=== PATIENT | female | born 1950 | race Hispanic/Latino ===

== ENCOUNTER 2018-07-24 13:28 | Outpatient (RCR) | payer MEDICARE, OTHER ==
[~2018-07-24 13:28] MED LIST: ATORVASTATIN CA20 MG PO; FUROSEMIDE40 MG PO; GLIMEPIRIDE2 MG PO; METFORMIN HCL850 MG PO; METOCLOPRAMIDE10 MG PO; METOPROLOL TAR100 MG PO; NORCO 10-325 T1 EACH PO; OMEPRAZOLE40 MG PO; TIZANIDINE HCL4 MG PO; VICTOZA 2-0.6 MG/0.1 INJ; VITAMIN D1000 UNIT PO; VITAMIN E400 UNI2 PO; ZOFRAN ODT4 MG PO
== END 2018-08-03 ==
LOC: PT 13:28
PROVIDERS: ATTEND Specialist
DX: M70.62 Trochanteric bursitis, left hip (principal); M25.552 Pain in left hip; M62.81 Muscle weakness (generalized)
CPT/HCPCS: 97010; 97110; 97162; G8978; G8979

== ENCOUNTER 2021-12-17 20:05 | Inpatient (IN) | payer MEDICARE ==
[~2021-12-17] VITALS: Ht 154.9 cm; Wt 76.7 kg
[2021-12-17] MEDS ORDERED: ACETAMINOPHEN 325 MG TAB PO STA (20:21)
[2021-12-17] MEDS ORDERED: ASPIRIN 81 MG CHEW TAB PO ONE (20:30)
[2021-12-17 20:35] LABS: BASOPHILS % 0.5 % (0.0-1.0); EOSINOPHILS % 0.3 % (0.0-6.0); HEMATOCRIT 45.2 % (34.2-44.1); HEMOGLOBIN 14.9 g/dL (12.0-16.0); LYMPHOCYTES # (AUTO) 2.2 (1.0-3.2); MEAN CORPUSCULAR VOLUME 103.2 fL (81-99); MONOCYTES # (AUTO) 0.7 (0.2-0.8); MONOCYTES % 12.4 % (4.4-11.3); NEUTROPHILS # (AUTO) 2.8 (2.1-6.9); NEUTROPHILS % 48.1 % (38.7-80.0); PLATELET COUNT 238 x10e3/uL (140-360); RED BLOOD COUNT 4.38 x10e6/uL (3.6-5.1)
[2021-12-17 20:51] LABS: ALANINE AMINOTRANSFERASE 22 IU/L (0-55); ALBUMIN 3.7 g/dL (3.5-5.0); ALBUMIN/GLOBULIN RATIO 0.8 (0.8-2.0); ALKALINE PHOSPHATASE 114 IU/L (40-150); ANION GAP 18.7 mmol/L (8-16); BLOOD UREA NITROGEN 9 mg/dL (7-26); BUN/CREATININE RATIO 9 (6-25); CALCIUM 9.5 mg/dL (8.4-10.2); CARBON DIOXIDE 22 mmol/L (22-29); CHLORIDE 99 mmol/L (98-107); CREATINE KINASE 26 IU/L (29-168); CREATININE, SERUM 1.04 mg/dL (0.57-1.11); EST GLOMERULAR FILTRATION RATE 53 ML/MIN (60-); POTASSIUM 3.7 mmol/L (3.5-5.1); SODIUM 136 mmol/L (136-145)
[2021-12-17 20:55] LABS: GLUCOSE 411 mg/dL (74-118)
[2021-12-17] MEDS: LEVOFLOXACIN 750MG/D5W 150ML 150 ML IV SCH (21:05)
[2021-12-17] MEDS ORDERED: SODIUM CHLORIDE 0.9% 1000ML 1,000 ML IV STA (21:15)
[2021-12-17 21:26] LABS: CLARITY,URINE CLEAR (CLEAR); COLOR,URINE YELLOW (YELLOW); KETONES,URINE NEGATIVE (NEGATIVE); LEUKOCYTE ESTERASE ,URINE NEGATIVE (NEGATIVE); NITRITE,URINE NEGATIVE (NEGATIVE); PROTEIN,URINE DIPSTICK NEGATIVE (NEGATIVE); URINE UROBILINOGEN 0.2 mg/dL (0.2 - 1)
[2021-12-17] MEDS ORDERED: SODIUM CHLORIDE 0.9% 1000ML 1,000 ML ONE (21:28)
[2021-12-17 21:34] LABS: EPITHELIAL CELLS,URINE FEW /LPF
[2021-12-17] MEDS ORDERED: IOPAMIDOL 370 MG/ML 100 ML INFUS..BTL INJ ONE (22:03)
[2021-12-18] VITALS (9 sets, daily range): BP systolic 131–158; BP diastolic 77–91
[2021-12-18] MEDS: SODIUM CHLORIDE 0.9% 1000ML 1,000 ML IV SCH ×4 (00:28→21:07)
[2021-12-18] MEDS: Morphine 4mg Syringe 4 MG/ML INJ IV PRN ×5 (00:52→19:51)
[2021-12-18] MEDS: ONDANSETRON HCL INJ 2MG/ML 2ML 2 MG/ML VIAL IV PRN ×4 (00:52→14:55)
[2021-12-18] MEDS ORDERED: METHOTREXATE2.5 MG PO (02:03)
[2021-12-18] MEDS ORDERED: FOLIC ACID0.4 MG PO (02:07)
[2021-12-18] MEDS ORDERED: CYMBALTA30 MG PO (02:30)
[2021-12-18] MEDS ORDERED: CELEBREX200 MG PO (02:31)
[2021-12-18] MEDS ORDERED: NEURONTIN300 MG PO (02:32)
[2021-12-18] MEDS ORDERED: CYCLOBENZAPRINE10 MG PO (02:32)
[2021-12-18] MEDS ORDERED: SYNJARDY XR 101 EACH (02:34)
[2021-12-18 06:13] LABS: BASOPHILS % 0.7 % (0.0-1.0); EOSINOPHILS % 0.2 % (0.0-6.0); HEMATOCRIT 41.7 % (34.2-44.1); HEMOGLOBIN 13.6 g/dL (12.0-16.0); LYMPHOCYTES % 48.1 % (18.0-39.1); MEAN CORPUSCULAR HEMOGLOBIN 33.7 pg (28-32); MEAN CORPUSCULAR HGB CONC 32.6 g/dL (31-35); MEAN CORPUSCULAR VOLUME 103.2 fL (81-99); MONOCYTES # (AUTO) 0.5 (0.2-0.8); MONOCYTES % 12.4 % (4.4-11.3); NEUTROPHILS # (AUTO) 1.6 (2.1-6.9); NEUTROPHILS % 37.9 % (38.7-80.0); PLATELET COUNT 212 x10e3/uL (140-360); RED BLOOD COUNT 4.04 x10e6/uL (3.6-5.1); RED CELL DISTRIBUTION WIDTH 13.7 % (11.7-14.4)
[2021-12-18 06:36] LABS: ALBUMIN 3.5 g/dL (3.5-5.0); ALBUMIN/GLOBULIN RATIO 0.8 (0.8-2.0); ANION GAP 17.1 mmol/L (8-16); CREATININE, SERUM 0.75 mg/dL (0.57-1.11); POTASSIUM 4.1 mmol/L (3.5-5.1)
[2021-12-18 06:37] LABS: CREATINE KINASE 35 IU/L (29-168)
[2021-12-18] MEDS ORDERED: DEXTROSE 50% SYRINGE 50 ML IV PRN (09:15)
[2021-12-18] MEDS: PANTOPRAZOLE SOD 40 MG TABEC PO SCH ×3 (10:30→16:11)
[2021-12-18] MEDS: INSULIN LISPRO 100 UNIT/1 ML 3ML VIAL SQ SCH ×3 (11:50→21:07)
[2021-12-18] MEDS: ALBUTEROL SULF 0.083% NEB SOLN 3 ML NEB NEB SCH ×2 (13:25→18:30)
[2021-12-18 13:43] LABS: CREATINE KINASE 39 IU/L (29-168)
[2021-12-18] MEDS: METOPROLOL TARTRATE 50 MG TAB PO SCH (16:11)
[2021-12-18] MEDS: CYCLOBENZAPRINE HCL 10 MG TAB PO SCH ×2 (16:11→21:07)
[2021-12-18] MEDS: GABAPENTIN 300 MG CAP PO SCH ×2 (16:11→21:07)
[2021-12-18] MEDS: LEVOFLOXACIN 750MG/D5W 150ML 150 ML IV SCH (21:07)
[2021-12-18] MEDS: ATORVASTATIN 20 MG TAB PO SCH (21:07)
[2021-12-18] MEDS: MELATONIN 3 MG TAB PO SCH (21:07)
[2021-12-19] VITALS (7 sets, daily range): BP systolic 94–126; BP diastolic 53–80
[2021-12-19] MEDS: ALBUTEROL SULF 0.083% NEB SOLN 3 ML NEB NEB SCH ×5 (00:30→23:30)
[2021-12-19 06:07] LABS: BASOPHILS % 0.4 % (0.0-1.0); EOSINOPHILS % 0.4 % (0.0-6.0); HEMATOCRIT 38.4 % (34.2-44.1); HEMOGLOBIN 12.5 g/dL (12.0-16.0); LYMPHOCYTES # (AUTO) 1.6 (1.0-3.2); LYMPHOCYTES % 32.6 % (18.0-39.1); MEAN CORPUSCULAR HEMOGLOBIN 34.4 pg (28-32); MEAN CORPUSCULAR HGB CONC 32.6 g/dL (31-35); MEAN CORPUSCULAR VOLUME 105.8 fL (81-99); MONOCYTES # (AUTO) 0.6 (0.2-0.8); MONOCYTES % 12.8 % (4.4-11.3); NEUTROPHILS # (AUTO) 2.5 (2.1-6.9); NEUTROPHILS % 53.2 % (38.7-80.0); PLATELET COUNT 202 x10e3/uL (140-360); RED BLOOD COUNT 3.63 x10e6/uL (3.6-5.1)
[2021-12-19] MEDS: Morphine 4mg Syringe 4 MG/ML INJ IV PRN ×3 (06:40→22:59)
[2021-12-19 06:41] LABS: ALBUMIN/GLOBULIN RATIO 0.9 (0.8-2.0); CALCIUM 8.1 mg/dL (8.4-10.2); CREATININE, SERUM 0.72 mg/dL (0.57-1.11)
[2021-12-19 06:53] LABS: CREATINE KINASE 53 IU/L (29-168)
[2021-12-19] MEDS: ACETAMINOPHEN 325 MG TAB PO PRN (07:17)
[2021-12-19] MEDS: PANTOPRAZOLE SOD 40 MG TABEC PO SCH ×3 (07:30→16:12)
[2021-12-19] MEDS: GABAPENTIN 300 MG CAP PO SCH ×3 (08:23→21:00)
[2021-12-19] MEDS: CYCLOBENZAPRINE HCL 10 MG TAB PO SCH ×3 (08:23→21:00)
[2021-12-19] MEDS: DULOXETINE HCL 30 MG DELAYED RELEASE PO SCH (08:23)
[2021-12-19] MEDS: METOPROLOL TARTRATE 50 MG TAB PO SCH ×2 (08:24→16:30)
[2021-12-19] MEDS: INSULIN LISPRO 100 UNIT/1 ML 3ML VIAL SQ SCH ×4 (08:30→21:00)
[2021-12-19] MEDS: SODIUM CHLORIDE 0.9% 1000ML 1,000 ML IV SCH (12:11)
[2021-12-19] MEDS: ONDANSETRON HCL INJ 2MG/ML 2ML 2 MG/ML VIAL IV PRN (16:12)
[2021-12-19] MEDS: ENOXAPARIN SOD INJ 60 MG/0.6 ML SYR SC SCH (16:31)
[2021-12-19] MEDS ORDERED: FUROSEMIDE INJ 10 MG/ML 2 ML VIAL IV ONE (17:45)
[2021-12-19] MEDS: MELATONIN 3 MG TAB PO SCH (21:00)
[2021-12-19] MEDS: ATORVASTATIN 20 MG TAB PO SCH (21:00)
[2021-12-19] MEDS: LEVOFLOXACIN 750MG/D5W 150ML 150 ML IV SCH (21:00)
[2021-12-20] VITALS (8 sets, daily range): BP systolic 101–119; BP diastolic 54–94
[2021-12-20] MEDS: ACETAMINOPHEN 325 MG TAB PO PRN ×2 (02:54→16:52)
[2021-12-20] MEDS: Morphine 4mg Syringe 4 MG/ML INJ IV PRN ×2 (04:33→10:02)
[2021-12-20] MEDS: ONDANSETRON HCL INJ 2MG/ML 2ML 2 MG/ML VIAL IV PRN (04:33)
[2021-12-20 05:00] LABS: BASOPHILS % 0.5 % (0.0-1.0); EOSINOPHILS # (AUTO) 0.1 (0.0-0.4); EOSINOPHILS % 1.2 % (0.0-6.0); HEMATOCRIT 35.7 % (34.2-44.1); HEMOGLOBIN 11.6 g/dL (12.0-16.0); LYMPHOCYTES # (AUTO) 1.7 (1.0-3.2); LYMPHOCYTES % 39.3 % (18.0-39.1); MEAN CORPUSCULAR HEMOGLOBIN 34.1 pg (28-32); MEAN CORPUSCULAR HGB CONC 32.5 g/dL (31-35); MONOCYTES # (AUTO) 0.5 (0.2-0.8); MONOCYTES % 11.7 % (4.4-11.3); NEUTROPHILS % 46.8 % (38.7-80.0); PLATELET COUNT 204 x10e3/uL (140-360); RED CELL DISTRIBUTION WIDTH 13.5 % (11.7-14.4)
[2021-12-20 05:18] LABS: ALBUMIN/GLOBULIN RATIO 0.9 (0.8-2.0); ANION GAP 12.7 mmol/L (8-16); CALCIUM 8.1 mg/dL (8.4-10.2); CREATININE, SERUM 0.78 mg/dL (0.57-1.11); POTASSIUM 3.7 mmol/L (3.5-5.1)
[2021-12-20] MEDS: ALBUTEROL SULF 0.083% NEB SOLN 3 ML NEB NEB SCH ×3 (06:54→19:35)
[2021-12-20] MEDS: PANTOPRAZOLE SOD 40 MG TABEC PO SCH ×3 (07:30→16:06)
[2021-12-20] MEDS: INSULIN LISPRO 100 UNIT/1 ML 3ML VIAL SQ SCH ×4 (08:00→21:30)
[2021-12-20 08:18] LABS: LYMPHOCYTES % (MANUAL) 36 % (19-48); MONOCYTES % (MANUAL) 8 % (3.4-9.0); NEUTROPHILS % (MANUAL) 55 % (40-74); PLATELET ESTIMATE ADEQUATE; PLATELET MORPHOLOGY COMMENT NORMAL; RBC MORPHOLOGY COMMENT NORMAL
[2021-12-20] MEDS: DULOXETINE HCL 30 MG DELAYED RELEASE PO SCH (08:22)
[2021-12-20] MEDS: CYCLOBENZAPRINE HCL 10 MG TAB PO SCH ×3 (08:22→20:39)
[2021-12-20] MEDS: METOPROLOL TARTRATE 50 MG TAB PO SCH ×2 (08:25→16:51)
[2021-12-20] MEDS: GABAPENTIN 300 MG CAP PO SCH ×3 (08:25→20:39)
[2021-12-20] MEDS: GUAIFENESIN/CODEINE 5 ML LIQD PO PRN ×2 (13:27→18:40)
[2021-12-20] MEDS: ENOXAPARIN SOD INJ 60 MG/0.6 ML SYR SC SCH (16:51)
[2021-12-20] MEDS: CELECOXIB 100 MG CAP PO SCH (16:51)
[2021-12-20] MEDS: ATORVASTATIN 20 MG TAB PO SCH (20:39)
[2021-12-20] MEDS: MELATONIN 3 MG TAB PO SCH (20:39)
[2021-12-20] MEDS ORDERED: LEVOFLOXACIN 500MG/D5W 100ML 100 ML IV SCH (21:00)
[2021-12-21] VITALS (8 sets, daily range): BP systolic 107–138; BP diastolic 60–70
[2021-12-21] MEDS: ALBUTEROL SULF 0.083% NEB SOLN 3 ML NEB NEB SCH ×4 (00:10→18:30)
[2021-12-21] MEDS: Morphine 4mg Syringe 4 MG/ML INJ IV PRN (03:35)
[2021-12-21] MEDS: GUAIFENESIN/CODEINE 5 ML LIQD PO PRN ×3 (03:50→15:49)
[2021-12-21] MEDS: PANTOPRAZOLE SOD 40 MG TABEC PO SCH ×3 (07:30→16:25)
[2021-12-21] MEDS: INSULIN LISPRO 100 UNIT/1 ML 3ML VIAL SQ SCH ×4 (08:00→21:33)
[2021-12-21] MEDS: CELECOXIB 100 MG CAP PO SCH ×2 (08:04→17:06)
[2021-12-21] MEDS: FOLIC ACID 1 MG TAB PO SCH (09:18)
[2021-12-21] MEDS: METHYLPREDNISOLONE SOD SUCC 40 MG/ML VIAL 1ML IV SCH ×2 (09:18→21:00)
[2021-12-21] MEDS: DULOXETINE HCL 30 MG DELAYED RELEASE PO SCH (09:18)
[2021-12-21] MEDS: CYCLOBENZAPRINE HCL 10 MG TAB PO SCH ×3 (09:18→21:00)
[2021-12-21] MEDS: METOPROLOL TARTRATE 50 MG TAB PO SCH ×2 (09:19→17:06)
[2021-12-21] MEDS: GABAPENTIN 300 MG CAP PO SCH ×3 (09:19→21:00)
[2021-12-21] MEDS ORDERED: AZITHROMYCIN 250 MG TAB PO ONE (09:30)
[2021-12-21] MEDS: ACETAMINOPHEN 325 MG TAB PO PRN ×2 (09:34→15:50)
[2021-12-21] MEDS: ENOXAPARIN SOD INJ 60 MG/0.6 ML SYR SC SCH (17:06)
[2021-12-21] MEDS: MELATONIN 3 MG TAB PO SCH (21:00)
[2021-12-22] VITALS (10 sets, daily range): BP systolic 105–128; BP diastolic 53–72
[2021-12-22] MEDS: ALBUTEROL SULF 0.083% NEB SOLN 3 ML NEB NEB SCH ×4 (00:10→19:50)
[2021-12-22] MEDS: Morphine 4mg Syringe 4 MG/ML INJ IV PRN ×2 (00:10→20:54)
[2021-12-22] MEDS: GUAIFENESIN/CODEINE 5 ML LIQD PO PRN (00:10)
[2021-12-22 05:46] LABS: BASOPHILS % 0.2 % (0.0-1.0); HEMATOCRIT 33.7 % (34.2-44.1); HEMOGLOBIN 11.2 g/dL (12.0-16.0); LYMPHOCYTES # (AUTO) 1.8 (1.0-3.2); LYMPHOCYTES % 29.4 % (18.0-39.1); MEAN CORPUSCULAR HEMOGLOBIN 34.4 pg (28-32); MEAN CORPUSCULAR HGB CONC 33.2 g/dL (31-35); MEAN CORPUSCULAR VOLUME 103.4 fL (81-99); MONOCYTES # (AUTO) 0.5 (0.2-0.8); MONOCYTES % 7.7 % (4.4-11.3); NEUTROPHILS # (AUTO) 3.8 (2.1-6.9); PLATELET COUNT 246 x10e3/uL (140-360); RED BLOOD COUNT 3.26 x10e6/uL (3.6-5.1); RED CELL DISTRIBUTION WIDTH 13.3 % (11.7-14.4)
[2021-12-22 06:18] LABS: ALBUMIN 3.2 g/dL (3.5-5.0); ALBUMIN/GLOBULIN RATIO 0.9 (0.8-2.0); ANION GAP 11.1 mmol/L (8-16); CALCIUM 8.9 mg/dL (8.4-10.2); CREATININE, SERUM 0.8 mg/dL (0.57-1.11); POTASSIUM 4.1 mmol/L (3.5-5.1)
[2021-12-22] MEDS: INSULIN LISPRO 100 UNIT/1 ML 3ML VIAL SQ SCH ×4 (07:30→20:54)
[2021-12-22] MEDS: PANTOPRAZOLE SOD 40 MG TABEC PO SCH ×2 (08:02→17:40)
[2021-12-22] MEDS: CELECOXIB 100 MG CAP PO SCH ×2 (08:03→17:41)
[2021-12-22] MEDS: METHYLPREDNISOLONE SOD SUCC 40 MG/ML VIAL 1ML IV SCH ×2 (08:04→20:54)
[2021-12-22] MEDS: DULOXETINE HCL 30 MG DELAYED RELEASE PO SCH (08:05)
[2021-12-22] MEDS: FOLIC ACID 1 MG TAB PO SCH (08:06)
[2021-12-22] MEDS: METOPROLOL TARTRATE 50 MG TAB PO SCH ×2 (08:06→17:41)
[2021-12-22] MEDS: CYCLOBENZAPRINE HCL 10 MG TAB PO SCH ×3 (08:06→20:54)
[2021-12-22] MEDS: AZITHROMYCIN 250 MG TAB PO SCH (08:07)
[2021-12-22] MEDS: GABAPENTIN 300 MG CAP PO SCH ×3 (08:07→20:54)
[2021-12-22] MEDS: ENOXAPARIN SOD INJ 60 MG/0.6 ML SYR SC SCH (17:00)
[2021-12-22] MEDS: MELATONIN 3 MG TAB PO SCH (20:54)
[2021-12-23] VITALS (7 sets, daily range): BP systolic 119–142; BP diastolic 55–68
[2021-12-23] MEDS: ALBUTEROL SULF 0.083% NEB SOLN 3 ML NEB NEB SCH ×3 (00:50→13:02)
[2021-12-23] MEDS: Morphine 4mg Syringe 4 MG/ML INJ IV PRN (04:44)
[2021-12-23] MEDS ORDERED: HYDROCODONE/APAP 10MG-325MG TAB PO PRN (04:45)
[2021-12-23] MEDS: GUAIFENESIN/CODEINE 5 ML LIQD PO PRN (07:09)
[2021-12-23] MEDS: DULOXETINE HCL 30 MG DELAYED RELEASE PO SCH (08:32)
[2021-12-23] MEDS: PANTOPRAZOLE SOD 40 MG TABEC PO SCH ×2 (08:32→16:41)
[2021-12-23] MEDS: METHYLPREDNISOLONE SOD SUCC 40 MG/ML VIAL 1ML IV SCH (08:32)
[2021-12-23] MEDS: CELECOXIB 100 MG CAP PO SCH ×2 (08:32→16:42)
[2021-12-23] MEDS: FOLIC ACID 1 MG TAB PO SCH (08:33)
[2021-12-23] MEDS: CYCLOBENZAPRINE HCL 10 MG TAB PO SCH ×2 (08:33→16:43)
[2021-12-23] MEDS: METOPROLOL TARTRATE 50 MG TAB PO SCH (08:33)
[2021-12-23] MEDS: AZITHROMYCIN 250 MG TAB PO SCH (08:34)
[2021-12-23] MEDS: GABAPENTIN 300 MG CAP PO SCH ×2 (08:34→16:40)
[2021-12-23] MEDS: INSULIN LISPRO 100 UNIT/1 ML 3ML VIAL SQ SCH ×2 (09:05→12:34)
[2021-12-23] MEDS ORDERED: ONDANSETRON HCL 4 MG ORAL DISINTEGRATING TAB PO PRN (12:45)
== END 2021-12-23 18:20 | disposition home or self-care (01) | DRG 871 ==
LOC: ER 20:22 → ERHOLD 23:33 → UNDOADMIN 12-18 00:01 → ERHOLD 12-18 01:02 → MED/SURG2 12-18 01:02
PROVIDERS: ADMIT Internal Medicine; ATTEND Internal Medicine
DX: A41.9 Sepsis, unspecified organism (principal); J18.9 Pneumonia, unspecified organism; J96.01 Acute respiratory failure with hypoxia; D84.821 Immunodeficiency due to drugs; R65.20 Severe sepsis without septic shock; M06.9 Rheumatoid arthritis, unspecified; E66.9 Obesity, unspecified; E11.65 Type 2 diabetes mellitus with hyperglycemia; E11.40 Type 2 diabetes mellitus with diabetic neuropathy, unspecified; E78.5 Hyperlipidemia, unspecified; K21.9 Gastro-esophageal reflux disease without esophagitis; I10 Essential (primary) hypertension; M94.0 Chondrocostal junction syndrome [Tietze]; E87.70 Fluid overload, unspecified; Z68.31 Body mass index [BMI] 31.0-31.9, adult; Z88.6 Allergy status to analgesic agent; Z86.16 Personal history of COVID-19; Z91.81 History of falling; Z79.52 Long term (current) use of systemic steroids; Z88.0 Allergy status to penicillin
CPT/HCPCS: 36415; 71045; 71260; 80053; 81001; 82550; 82553; 82607; 82746; 82805; 82948; 83036; 83605; 83735; 83880; 84443; 84484; 85025; 85379; 87040; 93005; 94640; 94799; 96372; 99284; J1650; J1940; J1956; J2270; J2405; J2920; J7030; Q9967; U0002

== ENCOUNTER → 2022-11-14 | Outpatient (CLI) | payer MEDICARE ==
[~2022-11-14] MED LIST changes: +CELEBREX200 MG PO; +CYCLOBENZAPRINE10 MG PO; +CYMBALTA30 MG PO; +FOLIC ACID0.4 MG PO; +METHOTREXATE2.5 MG PO; +NEURONTIN300 MG PO; +SYNJARDY XR 101 EACH
== END ==
LOC: CT 13:27
PROVIDERS: ATTEND Internal Medicine
DX: E27.40 Unspecified adrenocortical insufficiency (principal)
CPT/HCPCS: 36415; 74150; 82565; 84520

== ENCOUNTER 2023-02-27 13:27 | Inpatient (IN) | payer MEDICARE ==
[~2023-02-27] VITALS: Ht 157.5 cm; Wt 72.6 kg
[2023-02-27] MEDS ORDERED: SODIUM CHLORIDE 0.9% 1000ML 1,000 ML IV STA (13:45)
[2023-02-27] MEDS ORDERED: ONDANSETRON HCL INJ 2MG/ML 2ML 2 MG/ML VIAL IV STA (13:47)
[2023-02-27] MEDS ORDERED: Morphine 2mg Syringe 2 MG/ML SYR IV STA ×2 (13:47→17:07)
[2023-02-27 13:55] LABS: BASOPHILS % 0.3 % (0.0-1.0); EOSINOPHILS % 0.2 % (0.0-6.0); HEMATOCRIT 43.2 % (34.2-44.1); HEMOGLOBIN 14.5 g/dL (12.0-16.0); LYMPHOCYTES # (AUTO) 2.1 (1.0-3.2); LYMPHOCYTES % 18.1 % (18.0-39.1); MEAN CORPUSCULAR HEMOGLOBIN 33.7 pg (28-32); MEAN CORPUSCULAR HGB CONC 33.6 g/dL (31-35); MEAN CORPUSCULAR VOLUME 100.5 fL (81-99); MONOCYTES % 8.4 % (4.4-11.3); NEUTROPHILS # (AUTO) 8.3 (2.1-6.9); NEUTROPHILS % 72.4 % (38.7-80.0); PLATELET COUNT 329 x10e3/uL (140-360); RED CELL DISTRIBUTION WIDTH 13.7 % (11.7-14.4)
[2023-02-27 13:59] LABS: INR 0.98; PROTHROMBIN TIME 13.5 seconds (11.9-14.5)
[2023-02-27 14:00] LABS: PARTIAL THROMBOPLASTIN TIME 35.9 seconds (23.8-35.5)
[2023-02-27 14:08] LABS: ALBUMIN 3.5 g/dL (3.5-5.0); ALBUMIN/GLOBULIN RATIO 0.7 (0.8-2.0); CALCIUM 9.6 mg/dL (8.4-10.2); CREATININE, SERUM 1.01 mg/dL (0.57-1.11)
[2023-02-27 14:22] LABS: B-TYPE NATRIURETIC PEPTIDE2 23.1 pg/mL (0-100)
[2023-02-27] MEDS ORDERED: IOPAMIDOL 370 MG/ML 100 ML INFUS..BTL INJ ONE (14:24)
[2023-02-27] MEDS ORDERED: MEROPENEM 1 GM in SODIUM CHLORIDE 0.9% 100 ML IV ONE (14:45)
[2023-02-27 17:50] VITALS: PULSE 98; RESP 18; O2SAT 96
[2023-02-27] MEDS ORDERED: ALBUTEROL/IPRATROPIUM 3 ML NEB NEB ONE (18:00)
[2023-02-27] MEDS: HYDROMORPHONE 1MG/1ML INJ IV PRN ×2 (18:26→21:44)
[2023-02-27] MEDS: SODIUM CHLORIDE 0.9% 1000ML 1,000 ML IV SCH ×2 (18:26→20:53)
[2023-02-27] MEDS: Vancomycin IV 1 GM in SODIUM CHLORIDE 0.9% 250ML 250 ML IV SCH (18:26)
[2023-02-27] MEDS ORDERED: GABAPENTIN600 MG PO (21:10)
[2023-02-27 21:22] VITALS: BP 133/63; PULSE 103; RESP 18; TEMP 98.6; O2SAT 99
[2023-02-27 21:25] VITALS: BP 133/63; PULSE 103; RESP 18; TEMP 98.6; O2SAT 99
[2023-02-27 21:41] VITALS: BP 133/61; PULSE 103; RESP 17; TEMP 98.6; O2SAT 99
[2023-02-27] MEDS: MEROPENEM 1 GM in SODIUM CHLORIDE 0.9% 100 ML IV SCH (22:57)
[2023-02-28] VITALS (8 sets, daily range): BP systolic 141–148; BP diastolic 57–82; PULSE 78–102; RESP 18–20; TEMP 97–98.6; O2SAT 95–100
[2023-02-28] MEDS: HYDROMORPHONE 1MG/1ML INJ IV PRN ×5 (00:38→17:33)
[2023-02-28] MEDS: ONDANSETRON HCL INJ 2MG/ML 2ML 2 MG/ML VIAL IV PRN ×2 (00:38→10:15)
[2023-02-28 04:59] LABS: BASOPHILS % 0.5 % (0.0-1.0); EOSINOPHILS % 0.5 % (0.0-6.0); HEMATOCRIT 36.6 % (34.2-44.1); HEMOGLOBIN 11.8 g/dL (12.0-16.0); LYMPHOCYTES # (AUTO) 1.5 (1.0-3.2); LYMPHOCYTES % 20.6 % (18.0-39.1); MEAN CORPUSCULAR HEMOGLOBIN 33.8 pg (28-32); MEAN CORPUSCULAR HGB CONC 32.2 g/dL (31-35); MEAN CORPUSCULAR VOLUME 104.9 fL (81-99); MONOCYTES # (AUTO) 0.8 (0.2-0.8); MONOCYTES % 10.3 % (4.4-11.3); NEUTROPHILS # (AUTO) 5.1 (2.1-6.9); NEUTROPHILS % 67.6 % (38.7-80.0); PLATELET COUNT 255 x10e3/uL (140-360); RED BLOOD COUNT 3.49 x10e6/uL (3.6-5.1); RED CELL DISTRIBUTION WIDTH 13.5 % (11.7-14.4)
[2023-02-28] MEDS: SODIUM CHLORIDE 0.9% 1000ML 1,000 ML IV SCH ×3 (05:12→23:20)
[2023-02-28] MEDS: MEROPENEM 1 GM in SODIUM CHLORIDE 0.9% 100 ML IV SCH ×3 (05:13→23:07)
[2023-02-28] MEDS: Vancomycin IV 1 GM in SODIUM CHLORIDE 0.9% 250ML 250 ML IV SCH ×2 (05:13→19:01)
[2023-02-28 05:23] LABS: ALBUMIN 2.6 g/dL (3.5-5.0); ALBUMIN/GLOBULIN RATIO 0.6 (0.8-2.0); ANION GAP 16.1 mmol/L (8-16); CALCIUM 8.3 mg/dL (8.4-10.2); CREATININE, SERUM 0.65 mg/dL (0.57-1.11); POTASSIUM 4.1 mmol/L (3.5-5.1)
[2023-02-28] MEDS: DULOXETINE HCL 30 MG DELAYED RELEASE PO SCH (09:00)
[2023-02-28] MEDS: METOPROLOL TARTRATE 50 MG TAB PO SCH ×2 (09:00→17:33)
[2023-02-28] MEDS: PANTOPRAZOLE SOD 40 MG TABEC PO SCH ×2 (09:00→17:33)
[2023-02-28] MEDS ORDERED: LIDOCAINE HCL 1% LOCAL INJ 20 ML VIAL ONE (11:16)
[2023-02-28] MEDS ORDERED: KETOROLAC TROMETHAMINE 30 MG/ML VIAL IV STA (20:58)
[2023-02-28] MEDS: ATORVASTATIN 20 MG TAB PO SCH (22:17)
[2023-03-01] VITALS (8 sets, daily range): BP systolic 102–148; BP diastolic 64–78; PULSE 65–82; RESP 14–20; TEMP 97.9–98.8; O2SAT 97–100
[2023-03-01] MEDS: Vancomycin IV 1 GM in SODIUM CHLORIDE 0.9% 250ML 250 ML IV SCH ×2 (06:27→17:42)
[2023-03-01] MEDS: MEROPENEM 1 GM in SODIUM CHLORIDE 0.9% 100 ML IV SCH ×3 (06:30→22:54)
[2023-03-01] MEDS: HYDROMORPHONE 1MG/1ML INJ IV PRN ×2 (06:41→22:15)
[2023-03-01] MEDS: DULOXETINE HCL 30 MG DELAYED RELEASE PO SCH (09:33)
[2023-03-01] MEDS: PANTOPRAZOLE SOD 40 MG TABEC PO SCH ×2 (09:34→17:41)
[2023-03-01] MEDS: SODIUM CHLORIDE 0.9% 1000ML 1,000 ML IV SCH ×2 (09:34→17:42)
[2023-03-01] MEDS: METOPROLOL TARTRATE 50 MG TAB PO SCH ×2 (09:34→17:42)
[2023-03-01] MEDS: ATORVASTATIN 20 MG TAB PO SCH (22:14)
[2023-03-02] VITALS (8 sets, daily range): BP systolic 117–165; BP diastolic 62–78; PULSE 63–70; RESP 13–19; TEMP 97.8–98.2; O2SAT 97–100
[2023-03-02] MEDS: Vancomycin IV 1 GM in SODIUM CHLORIDE 0.9% 250ML 250 ML IV SCH ×2 (05:40→17:33)
[2023-03-02] MEDS: MEROPENEM 1 GM in SODIUM CHLORIDE 0.9% 100 ML IV SCH ×3 (06:03→23:23)
[2023-03-02] MEDS: PANTOPRAZOLE SOD 40 MG TABEC PO SCH ×2 (08:44→17:33)
[2023-03-02] MEDS: METOPROLOL TARTRATE 50 MG TAB PO SCH ×2 (08:44→17:33)
[2023-03-02] MEDS: DULOXETINE HCL 30 MG DELAYED RELEASE PO SCH (08:44)
[2023-03-02] MEDS: HYDROMORPHONE 1MG/1ML INJ IV PRN ×3 (11:55→21:34)
[2023-03-02] MEDS: ATORVASTATIN 20 MG TAB PO SCH (20:09)
[2023-03-02] MEDS ORDERED: SODIUM CHLORIDE 0.9% 250ML 250 ML ONE (22:16)
[2023-03-03] MEDS: HYDROMORPHONE 1MG/1ML INJ IV PRN ×4 (03:50→16:32)
[2023-03-03] MEDS: Vancomycin IV 1 GM in SODIUM CHLORIDE 0.9% 250ML 250 ML IV SCH (05:19)
[2023-03-03] MEDS: DULOXETINE HCL 30 MG DELAYED RELEASE PO SCH (08:16)
[2023-03-03] MEDS: METOPROLOL TARTRATE 50 MG TAB PO SCH ×2 (08:16→16:21)
[2023-03-03] MEDS: PANTOPRAZOLE SOD 40 MG TABEC PO SCH ×2 (08:16→16:21)
[2023-03-03] MEDS: MEROPENEM 1 GM in SODIUM CHLORIDE 0.9% 100 ML IV SCH (08:17)
[2023-03-03 08:45] VITALS: BP 117/62; PULSE 70; RESP 18; TEMP 98.2; O2SAT 100
[2023-03-03 08:57] VITALS: BP 157/66; PULSE 62; RESP 20; TEMP 98.9; O2SAT 98
[2023-03-03] MEDS ORDERED: CEFTRIAXONE 1 GM VIAL IM ONE (11:00)
[2023-03-03] MEDS ORDERED: DIPHENHYDRAMINE HCL 25 MG CAP PO ONE (11:15)
[2023-03-03 11:45] VITALS: BP 120/64; PULSE 67; RESP 18; TEMP 98.1; O2SAT 97
[2023-03-03] MEDS ORDERED: ONDANSETRON HCL 4 MG ORAL DISINTEGRATING TAB PO PRN (13:30)
[2023-03-03 15:54] VITALS: BP 133/64; PULSE 67; RESP 18; TEMP 98.7; O2SAT 99
[2023-03-03] MEDS ORDERED: CEFUROXIME500 MG PO (19:57)
[2023-03-03] MEDS ORDERED: CEFUROXIME250 MG PO (19:58)
[2023-03-04] MEDS ORDERED: CEFTRIAXONE 2 GM in SODIUM CHLORIDE 0.9% 100 ML IV SCH (09:00)
== END 2023-03-03 20:15 | disposition home or self-care (01) | DRG 603 ==
LOC: ER 13:31 → ERHOLD 17:38 → MED/SURG2 20:29
PROVIDERS: ADMIT Internal Medicine; ATTEND Internal Medicine
DX: L03.116 Cellulitis of left lower limb (principal); M60.052 Infective myositis, left thigh; D84.9 Immunodeficiency, unspecified; I10 Essential (primary) hypertension; M19.90 Unspecified osteoarthritis, unspecified site; I44.4 Left anterior fascicular block; E11.9 Type 2 diabetes mellitus without complications; K21.9 Gastro-esophageal reflux disease without esophagitis; E78.00 Pure hypercholesterolemia, unspecified; M06.9 Rheumatoid arthritis, unspecified; Z88.0 Allergy status to penicillin; Z20.822 Contact with and (suspected) exposure to COVID-19
CPT/HCPCS: 10160; 36415; 71045; 74470; 76942; 80053; 80202; 82550; 82948; 83605; 83735; 83880; 84484; 85025; 85610; 85730; 87040; 87071; 87205; 93005; 93971; 94640; 94799; 96361; 99284; J0696; J1170; J1885; J2001; J2185; J2270; J2405; J7030; J7050; Q9967